=== PATIENT | male | born 1990 | race Caucasian/White ===

== ENCOUNTER 2016-12-28 10:39 | Emergency (ER) | payer OTHER ==
--- NOTE | 2016-12-28 11:27 | ED Physician Chart ---
ED Chief Complaint/HPI - Patient Information Date Seen:: 12/28/16 Time Seen:: 11:21 Chief Complaint:: Left ankle pain for 2 days History of Present Illness:: 26 yo male twisted left ankle (hyperextension) with subsequent moderate pain 2 days ago. The next day, the patient had a repeat injury to the left ankle by medial rotation with severe pain and difficulty walking. A few hours later, there was severe painful range of motion and limited ROM. Pain ranged from 6/10 at rest to 10/10 on movement. Allergies:: Allergies Allergy/AdvReac Type Severity Reaction Status Date / Time No Known Allergies Allergy Verified 12/28/16 10:54 Vitals:: Vital Signs - 8 hr 12/28/16 12/28/16 10:54 10:56 Temp 98.2 F 98.2 F HR 76 76 RR 14 16 BP 128/72 128/72 O2 Sat % 98 96 ED Review of Systems - Review of Systems General/Constitutional: No fever Skin: No skin lesions Head: No headache Eyes: No loss of vision ENT: No earache Neck: No neck pain Cardio Vascular: No chest pain Pulmonary: No SOB GI: No nausea, No vomiting G/U: No dysuria Musculoskeletal: No bone or joint pain Endocrine: No polyuria Psychiatric: No prior psych history Hematopoietic: No bruising, No lymphadenopathy Allergic/Immuno: No urticaria, No angioedema Neurological: No focal symptoms ED Past Medical History - Past Medical History Past Medical History: No significant medical hx Family History: None Social History: Non Smoker, Alcohol, Illicit Drug Use (marijuna occasionally) Surgical History: Hernia (Right inguinal hernia repair as an infant) Family Medical History - Family Member Mother Ethnicity: Living Status: Still Living Hx Family Cancer: No Hx Family Coronary Artery Disease: No Hx Family Congestive Heart Failure: No Hx Family Hypertension: No Hx Family Stroke: No Hx Family Diabetes: No Hx Family Seizures: No Hx Family Dementia: No Hx Family AIDS: No Hx Family HIV: No Hx Family COPD: No Hx Family Hepatitis: No Hx Family Psychiatric Problems: No Hx Family Tuberculosis: No ED Physical Exam - Physical Examination General/Constitutional: Well-developed, well-nourished Head: Atraumatic Eyes: Lids, conjuctiva normal, PERRL, EOMI Skin: Nl inspection, No rash, No skin lesions, No ecchymosis, Well hydrated, No lymphadenopathy ENMT: External ears, nose nl, Nasal exam nl, Lips, teeth, gums nl Neck: Nontender, Full ROM w/o pain, No JVD, No nuchal rigidity, No bruit, No mass, No stridor Respiratory: Nl effort/Exclusion, Clear to Auscultation, No Wheeze/Rhonchi/Rales Cardio Vascular: RRR, No murmur, gallop, rubs, NL S1 S2 GI: No tenderness/rebounding/guarding, No organomegaly, No hernia, Normal BS's, Nondistended, No mass/bruits, No McBurney tenderness : No CVA tenderness Other Extremities comments:: Left ankle exam: tenderness at achilles tendon, inferior peroneal retinaculum and posterior planta fascia. Aguirre test negative. mild swelling at left lateral malleolus. unable to do eversion and limited inversion with pain, unable to extend Neuro/Psych: No focal deficits Misc: Normal back ED Labs/Radiology/EKG Results - Radiology Results Results: Left ankle 3 views: unremarkable ED Assessment - Assessment General Assessment: Left ankle sprain Critical Care Time: 30 min Excludes all billable procedures: Yes This condition life threatening/high prob of deterioration: No Assessment/Comments:: Left ankle X ray Walker (ortho) boot x 1 Crutches Home rest x 1 week Ibuprofen 600mg Bid x 7 days ED Septic Shock - . Is Septic Shock (SBP<90, OR Lactate>4 mmol\L) present?: No - <6hrs of presentation: Vital Signs: Vital Signs - 8 hr 12/28/16 12/28/16 10:54 10:56 Temp 98.2 F 98.2 F HR 76 76 RR 14 16 BP 128/72 128/72 O2 Sat % 98 96 ED Reassessment (Disposition) - Reassessment Reassessment Condition:: Improved - Aftercare/Follow up Instructions Aftercare/Follow-Up Instructions:: Counseled pt regarding lab results/diagnosis & need follow up, Refer to Discharge Instructions - Patient Disposition Discharge/Transfer:: Home ED Discharge Plan - Patient Disposition Admit/Discharge/Transfer: PT DISCHARGED HOME Condition at Disposition: Stable Instructions: Ankle Sprain, RICE - Routine Care for Injuries Forms: Work Release Form
--- NOTE | 2016-12-28 11:58 | Diagnostic Imaging Report ---
Exam: Left ankle joint. HISTORY: Trauma Findings: Multiple views of left ankle reviewed. The study demonstrates soft tissue swelling over left lateral malleolus. The ankle mortise intact. There is no evidence of fracture dislocation. If clinically indicated and ligamentous injury suspected MRI examination might be helpful. IMPRESSION: Mild soft tissue swelling left lateral malleolus.
== END 2016-12-28 12:15 | disposition home or self-care (01) ==
LOC: ER 10:39
DX: S93.402D Sprain of unspecified ligament of left ankle, subsequent encounter (principal); X50.1XXD Overexertion from prolonged static or awkward postures, subsequent encounter
CPT/HCPCS: 73610-TC; Z7502